=== PATIENT | male | born 1980 | race American Indian/Alaskan Native ===

== ENCOUNTER 2017-03-02 22:53 | Inpatient (IN) | payer OTHER ==
[2017-03-03] MEDS ORDERED: Aspirin 325 mg EC Tablets PO STA (00:47)
--- NOTE | 2017-03-03 00:47 | C.PDOC ---
History Of Present Illness Patient presents to the ED complaining of chest pain after lifting a heavy object. Patient notes a similar episode about a month ago that occurred while he was in [place]. Patient denies shortness of breath, palpitations, nausea , vomiting, numbness or weakness. Time Seen by Provider: 03/03/17 00:47 Chief Complaint (Nursing): Chest Pain History Per: Patient History/Exam Limitations: no limitations Onset/Duration Of Symptoms: Hrs (prior to arrival) Current Symptoms Are (Timing): Still Present Context: Other Severity: Mild Pain Scale Rating Of: 3 Quality: "Pain" Exacerbating Factors: None Alleviating Factors: None Recent travel outside of the [place]: No Additional History Per: Patient Past Medical History Reviewed: Historical Data, Nursing Documentation, Vital Signs Vital Signs: Last Vital Signs Temp 97.2 F L 03/02/17 22:58 Pulse 56 L 03/03/17 00:15 Resp 14 03/03/17 00:15 BP 147/91 H 03/03/17 00:15 Pulse Ox 98 03/03/17 02:29 - Medical History PMH: Asthma Family History: States: Unknown Family Hx - Social History Hx Alcohol Use: Yes Hx Substance Use: No - Immunization History Hx Tetanus Toxoid Vaccination: Yes Hx Influenza Vaccination: No Hx Pneumococcal Vaccination: No Review Of Systems ENT: Negative for: Throat Pain Cardiovascular: Positive for: Chest Pain. Negative for: Palpitations Respiratory: Negative for: Shortness of Breath Gastrointestinal: Negative for: Nausea, Vomiting Musculoskeletal: Negative for: Back Pain Skin: Negative for: Rash, Lesions, Jaundice Neurological: Negative for: Weakness, Numbness Psych: Negative for: Anxiety Physical Exam - Physical Exam Appears: Non-toxic, No Acute Distress Skin: Warm, Dry Head: Atraumatic, Normacephalic Eye(s): bilateral: Normal Inspection, PERRL, EOMI Oral Mucosa: Moist Neck: Supple Chest: Symmetrical Cardiovascular: Rhythm Regular Respiratory: No Rales, No Rhonchi, No Wheezing Gastrointestinal/Abdominal: Soft, No Tenderness Back: No CVA Tenderness Extremity: Bilateral: Atraumatic, Normal Color And Temperature Neurological/Psych: Oriented x3, Normal Speech, Normal Cognition, Normal Motor, Normal Sensation Gait: Steady ED Course And Treatment - Laboratory Results Result Diagrams: 03/03/17 01:00 03/03/17 01:00 ECG: Interpreted By Me, Viewed By Me ECG Rhythm: Sinus Rhythm (86), ST/T Changes (inf ischemic changes) O2 Sat by Pulse Oximetry: 98 (RA) Pulse Ox Interpretation: Normal - Radiology CXR: Interpreted by Me, Viewed By Me CXR Interpretation: No: Infiltrates, Fracture, Pnemothorax Progress Note: Plan: EKG, Labs, Chest x-ray, Ecotrin Disposition Discussed With Dr.: Zachary Chino Comment: accepted the pt on his service and took over the care at 3 AM Counseled Patient/Family Regarding: Studies Performed, Diagnosis - Disposition Disposition Time: 00:47 Condition: FAIR - Clinical Impression Clinical Impression: Chest pain - Scribe Statement The provider has reviewed the documentation as recorded by the Scribe Gilma Selby Provider Attestation: All medical record entries made by the Scribe were at my direction and personally dictated by me. I have reviewed the chart and agree that the record accurately reflects my personal performance of the history, physical exam, medical decision making, and the department course for this patient. I have also personally directed, reviewed, and agree with the discharge instructions and disposition. Decision To Admit - Pt Status Changed To: Hospital Disposition Of: Observation - . Bed Request Type: Telemetry Admitting Physician: Zachayr Chino Patient Diagnosis: Chest pain
[2017-03-03] MEDS ORDERED: Aspirin 325 mg EC Tablets PO ONE (01:01)
[2017-03-03 01:09] LABS: BASO # 0.1 K/uL (0.0-0.2); BASO % 0.7 % (0.0-2.0); EOS # 0.2 K/uL (0.0-0.7); EOS % 2.7 % (0.0-4.0); HEMATOCRIT 39.5 % (35.0-51.0); LYMPH % 41.7 % (20.0-40.0); MEAN CELL VOLUME 84.9 fL (80.0-94.0); MEAN CORPUSCULAR HEMOGLOBIN 27.9 pg (27.0-31.0); MEAN CORPUSCULAR HGB CONC 32.8 g/dL (33.0-37.0); MEAN PLATELET VOLUME 9.8 fL (7.2-11.7); MONO # 0.7 K/uL (0.0-0.8); MONO % 9.9 % (0.0-10.0); NRBC % 0.1 % (0.0-2.0); RED CELL DISTRIBUTION WIDTH 12.6 % (11.5-14.5); WHITE BLOOD COUNT 7.1 K/uL (4.8-10.8)
[2017-03-03 01:17] LABS: CHLORIDE 103 mmol/L (98-107); POTASSIUM 3.8 mmol/L (3.6-5.2); SODIUM 142 mmol/L (132-148)
[2017-03-03 01:19] LABS: GFR AFRICAN-AMERICAN > 60
[2017-03-03 01:20] LABS: ALB/GLOB RATIO 1.4 (1.0-2.1); ALKALINE PHOSPHATASE 56 U/L (38-126); ALT/SGPT 41 U/L (21-72); AST/SGOT 35 U/L (17-59); BILIRUBIN,TOTAL 0.8 mg/dL (0.2-1.3); BLOOD UREA NITROGEN 20 mg/dL (9-20); CARBON DIOXIDE 26 mmol/L (22-30); GLUCOSE,RANDOM 95 mg/dL (75-110); TOTAL PROTEIN 6.9 g/dL (6.3-8.3)
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
[2017-03-03 07:42] LABS: THYROID STIMULATING HORMONE 1.27 mIU/L (0.46-4.68)
--- NOTE | 2017-03-03 08:45 | RAD ---
PROCEDURE: CHEST RADIOGRAPH, 1 VIEW HISTORY: chest pain COMPARISON: None available. FINDINGS: LUNGS: Clear. PLEURA: No pneumothorax or pleural fluid seen. CARDIOVASCULAR: Normal. OSSEOUS STRUCTURES: No significant abnormalities. VISUALIZED UPPER ABDOMEN: Normal. OTHER FINDINGS: None. IMPRESSION: No active disease.
[2017-03-03] MEDS: Pantoprazole 40 mg EC Tab PO SCH (10:07)
--- NOTE | 2017-03-03 16:13 | CP.PCM.PN ---
<Paula Barton - Last Filed: 03/03/17 16:10> Subjective - Date & Time of Evaluation Date of Evaluation: 03/03/17 Time of Evaluation: 16:10 - Subjective Subjective: Patient seen and examined at bedside. Patient continues to have non-radiating sharp right and left sided chest pain, non-reproducible on palpation. Patient also complaining of dizziness and mild weakness. He states he is only short of breath when his asthma is provoked. Patient is tolerating diet well and having normal bowel movements. He denies abdominal pain, nausea, vomiting and diaphoresis. Objective - Vital Signs/Intake and Output Vital Signs (last 24 hours): Temp Pulse Resp BP Pulse Ox 97.5 F L 60 20 136/94 H 97 03/03/17 14:42 03/03/17 14:42 03/03/17 14:42 03/03/17 14:42 03/03/17 14:42 - Medications Medications: Current Medications Aspirin (Ecotrin) 81 mg PO DAILY [facility] Carvedilol (Coreg) 3.125 mg PO BID [facility] Lisinopril (Zestril) 2.5 mg PO DAILY [facility] Pantoprazole Sodium (Protonix Ec Tab) 40 mg PO DAILY [facility] Last Admin: 03/03/17 10:07 Dose: 40 mg - Labs Labs: PT 10.9 SECONDS (9.7-12.2) 03/03/17 01:00 INR 1.0 03/03/17 01:00 APTT 33 SECONDS (21-34) 03/03/17 01:00 - Constitutional Appears: Non-toxic, No Acute Distress - Head Exam Head Exam: ATRAUMATIC, NORMAL INSPECTION, NORMOCEPHALIC - Eye Exam Eye Exam: EOMI, Normal appearance, PERRL - ENT Exam ENT Exam: Mucous Membranes Moist, Normal Exam - Respiratory Exam Respiratory Exam: Clear to Ausculation Bilateral, NORMAL BREATHING PATTERN. absent: Rales, Rhonchi, Wheezes - Cardiovascular Exam Cardiovascular Exam: Bradycardia, +S1, +S2. absent: Tachycardia - GI/Abdominal Exam GI & Abdominal Exam: Soft, Normal Bowel Sounds. absent: Firm, Tenderness - Extremities Exam Extremities Exam: Normal Inspection. absent: Pedal Edema, Tenderness - Back Exam Back Exam: NORMAL INSPECTION - Neurological Exam Neurological Exam: Alert, Awake, Oriented x3 - Psychiatric Exam Psychiatric exam: Normal Affect, Normal Mood - Skin Skin Exam: Intact, Normal Color, Warm Assessment and Plan - Assessment and Plan (Free Text) Assessment: (1) Chest pain Assessment and Plan: AVIS Panel negative EKG sinus bridgette, possible T wave inversions in II, III, AVF Started on ASA 81 mg po daily, Lisinopril 2.5 mg po daily, Coreg 3.125 mg po BID Stat EKG ordered Cardiology, Dr. Solomon consulted. Help appreciated. Lipid Panel - normal, TSH - within normal limits will attempt to obtain records from hospital in [place] for prior workup Status: Acute (2) Light-headedness Assessment and Plan: EKG sinus bridgette, possible T wave inversions in II, III, AVF orthostatics: layin/117, sitting 161/ 115, standing 185/118 Status: Acute (3) Prophylactic measure Assessment and Plan: SCDs protonix 40mg daily Heart Healthy Diet Status: Acute <Kalia Weiss - Last Filed: 03/03/17 18:02> Objective - Vital Signs/Intake and Output Vital Signs (last 24 hours): Temp Pulse Resp BP Pulse Ox 97.7 F 58 L 12 138/103 H 98 03/03/17 15:45 03/03/17 16:33 03/03/17 15:45 03/03/17 15:45 03/03/17 15:45 Intake and Output: 03/03/17 03/03/17 06:59 18:59 Intake Total 0 Balance 0 - Medications Medications: Current Medications Aspirin (Ecotrin) 81 mg PO DAILY [facility] Carvedilol (Coreg) 3.125 mg PO BID [facility] Last Admin: 03/03/17 17:28 Dose: 3.125 mg Lisinopril (Zestril) 2.5 mg PO DAILY [facility] Pantoprazole Sodium (Protonix Ec Tab) 40 mg PO DAILY [facility] Last Admin: 03/03/17 10:07 Dose: 40 mg - Labs Labs: PT 10.9 SECONDS (9.7-12.2) 03/03/17 01:00 INR 1.0 03/03/17 01:00 APTT 33 SECONDS (21-34) 03/03/17 01:00 Attending/Attestation - Attestation I have personally seen and examined this patient.: Yes I have fully participated in the care of the patient.: Yes I have reviewed all pertinent clinical information, including history, physical exam and plan: Yes Notes (Text): 03/03/17 18:00 Medical attending: Patient was seen and examined by me, agrees the above note by medical records supervisor. Patient the patient was still in the ER pending bed placement upstairs. He explained to us that he is very concerned about his chest pain and that he has a family history of his father from heart complications in his mid 30s as well. The patient denies smoking he denies drug use. He denies trauma. The pain is not reproducible on exam. On the EKG he appeared to have some T-wave inversions as well as T-wave flattening a lot of the leads his cardiac enzymes were negative at this time he explains to us that he was previously at another hospital and [facility] where he also had a workup done including he says a stress test there currently don't have the results of that in order to try to see medical records from this hospital but it's not clear where it sat the patient says that it's at a hospital in [place], [place]. In the meantime, repeat EKG, get a echo as well, Thank you very much, Kalia Weiss
[2017-03-03] MEDS ORDERED: Albuterol HFA 90 mcg/actuation (8 g) IH PRN (18:31)
--- NOTE | 2017-03-03 18:53 | CARD ---
APPROVED REPORT EKG Measurement Heart [id number] <Conclusion> Sinus bradycardia ST & T wave abnormality, consider inferior ischemia Abnormal ECG
[2017-03-03 19:53] LABS: RBC URINE < 1 /hpf (0-3); URINE BILIRUBIN NEGATIVE (NEGATIVE); URINE BLOOD NEGATIVE (NEGATIVE); URINE COLOR Yellow (YELLOW); URINE GLUCOSE (UA) NORMAL (Normal); URINE KETONE NEGATIVE (NEGATIVE); URINE LEUKOCYTE ESTERASE NEG Leu/uL (Negative); URINE PROTEIN NEGATIVE (NEGATIVE); URINE UROBILINOGEN NORMAL mg/dL (0.2-1.0); WBC URINE 1 /hpf (0-5)
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
[2017-03-04 08:25] LABS: BASO % 0.8 % (0.0-2.0); EOS # 0.2 K/uL (0.0-0.7); EOS % 3.8 % (0.0-4.0); HEMATOCRIT 39.9 % (35.0-51.0); LYMPH # 2.5 K/uL (1.0-4.3); LYMPH % 51.8 % (20.0-40.0); MEAN CELL VOLUME 85.8 fL (80.0-94.0); MEAN CORPUSCULAR HEMOGLOBIN 28.2 pg (27.0-31.0); MEAN CORPUSCULAR HGB CONC 32.9 g/dL (33.0-37.0); MEAN PLATELET VOLUME 9.7 fL (7.2-11.7); MONO # 0.5 K/uL (0.0-0.8); MONO % 9.9 % (0.0-10.0); NRBC % 0.1 % (0.0-2.0); RED CELL DISTRIBUTION WIDTH 12.5 % (11.5-14.5); WHITE BLOOD COUNT 4.8 K/uL (4.8-10.8)
[2017-03-04 08:33] LABS: CHLORIDE 103 mmol/L (98-107); POTASSIUM 3.6 mmol/L (3.6-5.2); SODIUM 138 mmol/L (132-148)
[2017-03-04 08:35] LABS: ALB/GLOB RATIO 1.4 (1.0-2.1); BILIRUBIN,TOTAL 1.5 mg/dL (0.2-1.3); CARBON DIOXIDE 24 mmol/L (22-30); GFR AFRICAN-AMERICAN > 60; TOTAL PROTEIN 6.3 g/dL (6.3-8.3)
[2017-03-04 08:36] LABS: ALKALINE PHOSPHATASE 52 U/L (38-126); ALT/SGPT 34 U/L (21-72); AST/SGOT 27 U/L (17-59); BLOOD UREA NITROGEN 18 mg/dL (9-20); CALCIUM 8.6 mg/dl (8.6-10.4); GLUCOSE,RANDOM 88 mg/dL (75-110)
[2017-03-04] MEDS: Pantoprazole 40 mg EC Tab PO SCH (10:00)
[2017-03-04] MEDS: MethylPREDNISolone 40 mg Vial IVP SCH ×3 (10:00→17:25)
--- NOTE | 2017-03-04 10:55 | CARD ---
APPROVED REPORT EXAM: Two-dimensional and M-mode echocardiogram with Doppler and color Doppler. Other Information Quality : GoodRhythm : NSR INDICATION Chest Pain M-Mode DIMENSIONS RVDd1.22 (2.1-3.2cm)Left Atrium (MM)3.84 (2.5-4.0cm) IVSd1.33 (0.7-1.1cm)Aortic Root3.36 (2.2-3.7cm) LVDd4.61 (4.0-5.6cm)Aortic Cusp Exc.2.43 (1.5-2.0cm) PWd1.95 (0.7-1.1cm)FS (%) 46 % LVDs2.51 (2.0-3.8cm)LVEF (%)77 (>50%) Aortic Valve AoV Peak Xkldyyjk637.9cm/Shanice Peak GR.4mmHg Mitral Valve MV E Nxfdcjfd104.6cm/sMV A Bgpqqgxi63.3cm/sE/A ratio2.2 TDI E/Lateral E'0.0E/Medial E'0.0 Tricuspid Valve TR Peak Girbnabk410xc/sTR Peak Gr.10fuLgIXHD45stEr LEFT VENTRICLE The left ventricle is normal size. There is mild concentric left ventricular hypertrophy. The left ventricular function is normal. The left ventricular ejection fraction is within the normal range. About 65% No regional wall motion abnormalities noted. Transmitral Doppler flow pattern is Grade I-abnormal relaxation pattern. No left ventricle thrombus noted on this study. There is no ventricular septal defect visualized. There is no left ventricular aneurysm. There is no mass noted in the left ventricle. RIGHT VENTRICLE The right ventricle is normal size. There is normal right ventricular wall thickness. The right ventricular systolic function is normal. ATRIA The left atrium size is normal. The right atrium size is normal. The interatrial septum is intact with no evidence for an atrial septal defect. AORTIC VALVE The aortic valve is normal in structure and function. No aortic regurgitation is present. There is no aortic valvular stenosis. There is no aortic valvular vegetation. MITRAL VALVE The mitral valve is normal in structure and function. There is no evidence of mitral valve prolapse. There is no mitral valve stenosis. There is trace mitral valve regurgitation noted. TRICUSPID VALVE The tricuspid valve is normal in structure and function. There is no tricuspid valve regurgitation noted. There is no tricuspid valve prolapse or vegetation. There is no tricuspid valve stenosis. PULMONIC VALVE The pulmonary valve is normal in structure and function. There is no pulmonic valvular regurgitation. There is no pulmonic valvular stenosis. GREAT VESSELS The aortic root is normal in size. The ascending aorta is normal in size. The pulmonary artery is normal. The IVC is normal in size and collapses >50% with inspiration. PERICARDIAL EFFUSION The pericardium appears normal. There is no pleural effusion. <Conclusion> Normal LV EF, Type I diastolic dysfunction Mild LVH Trace MR.
--- NOTE | 2017-03-04 11:45 | CARD ---
APPROVED REPORT EKG Measurement Heart [id number] [place] 144P53 [id number] <Conclusion> Sinus bradycardia Nonspecific T wave abnormality Abnormal ECG
--- NOTE | 2017-03-04 11:46 | CARD ---
APPROVED REPORT EKG Measurement Heart [id number] SD [id number] <Conclusion> Sinus bradycardia with marked sinus arrhythmia Nonspecific T wave abnormality Abnormal ECG
[2017-03-04 20:06] VITALS: RESP 20
--- NOTE | 2017-03-04 20:22 | CP.PCM.PN ---
<KanePaula tracey - Last Filed: 03/04/17 20:19> Subjective - Date & Time of Evaluation Date of Evaluation: 03/04/17 Time of Evaluation: 20:19 - Subjective Subjective: Patient seen and examined at bedside. Patient states he continues to have dizziness. He states he also had episode of sharp chest pain throughout the night and this morning intermittently. Patient denies fever, chills, abdominal pain, nausea, vomiting, constipation, diarrhea, and dysuria. Objective - Vital Signs/Intake and Output Vital Signs (last 24 hours): Temp Pulse Resp BP Pulse Ox 97.6 F 86 20 130/77 97 03/04/17 19:55 03/04/17 19:55 03/04/17 19:55 03/04/17 19:55 03/04/17 19:55 Intake and Output: 03/04/17 03/05/17 18:59 06:59 Intake Total 120 Balance 120 - Medications Medications: Current Medications Albuterol (Ventolin Hfa 90 Mcg/Actuation (8 G)) 2 puff IH Q6H PRN PRN Reason: Shortness of Breath Last Admin: 03/04/17 07:28 Dose: 2 inhaler Aspirin (Ecotrin) 81 mg PO DAILY [facility] Last Admin: 03/04/17 10:01 Dose: 81 mg Carvedilol (Coreg) 3.125 mg PO BID [facility] Last Admin: 03/04/17 17:26 Dose: 3.125 mg Lisinopril (Zestril) 2.5 mg PO DAILY [facility] Last Admin: 03/04/17 10:00 Dose: 2.5 mg Meclizine HCl (Antivert) 12.5 mg PO BID PRN PRN Reason: Dizziness Last Admin: 03/04/17 10:16 Dose: 12.5 mg Methylprednisolone (Solu-Medrol) 20 mg IVP TID [facility] Last Admin: 03/04/17 17:25 Dose: 20 mg Pantoprazole Sodium (Protonix Ec Tab) 40 mg PO DAILY [facility] Last Admin: 03/04/17 10:00 Dose: 40 mg - Labs Labs: PT 10.9 SECONDS (9.7-12.2) 03/03/17 01:00 INR 1.0 03/03/17 01:00 APTT 33 SECONDS (21-34) 03/03/17 01:00 - Constitutional Appears: Non-toxic, No Acute Distress - Head Exam Head Exam: ATRAUMATIC, NORMAL INSPECTION, NORMOCEPHALIC - Eye Exam Eye Exam: EOMI, Normal appearance, PERRL - ENT Exam ENT Exam: Mucous Membranes Moist, Normal Exam - Neck Exam Neck Exam: Full ROM, Normal Inspection - Respiratory Exam Respiratory Exam: Clear to Ausculation Bilateral, NORMAL BREATHING PATTERN. absent: Rales, Rhonchi, Wheezes - Cardiovascular Exam Cardiovascular Exam: +S1, +S2. absent: Tachycardia - GI/Abdominal Exam GI & Abdominal Exam: Soft, Normal Bowel Sounds - Extremities Exam Extremities Exam: Normal Inspection. absent: Pedal Edema, Tenderness - Back Exam Back Exam: NORMAL INSPECTION - Neurological Exam Neurological Exam: Alert, Awake, Oriented x3 - Psychiatric Exam Psychiatric exam: Normal Affect, Normal Mood - Skin Skin Exam: Intact, Normal Color, Warm Assessment and Plan - Assessment and Plan (Free Text) Assessment: (1) Chest pain Assessment and Plan: AVIS Panel negative EKG sinus bridgette, possible T wave inversions in II, III, AVF Echo: Normal LV EF, Type I diastolic dysfunction. Mild LVH, Trace MR. Started on ASA 81 mg po daily, Lisinopril 2.5 mg po daily, Coreg 3.125 mg po BID Patient positive for orthostatic hypotension. Started on Normal Saline IV @ 70cc Cardiology, Dr. Solomon consulted. Help appreciated. Lipid Panel - normal, TSH - within normal limits awaiting records from hospital in [place] Status: Acute (2) Light-headedness Assessment and Plan: EKG sinus bridgette, possible T wave inversions in II, III, AVF orthostatics: lying 141/51, sitting 119/77 layin/117, sitting 161/ 115, standing 185/118 Status: Acute (3) Asthma Assessment and Plan: Improved Continue Solumedrol 20 mg IVP TID (4) Prophylactic measure Assessment and Plan: SCDs protonix 40mg daily Heart Healthy Diet Status: Acute <Kalia Weiss - Last Filed: 03/05/17 14:55> Objective - Vital Signs/Intake and Output Vital Signs (last 24 hours): Temp Pulse Resp BP Pulse Ox 97.4 F L 52 L 20 135/65 97 03/05/17 07:00 03/05/17 07:00 03/05/17 07:00 03/05/17 07:00 03/05/17 07:00 Intake and Output: 03/05/17 03/05/17 06:59 18:59 Intake Total 1200 Output Total 200 Balance 1000 - Medications Medications: Current Medications Albuterol (Ventolin Hfa 90 Mcg/Actuation (8 G)) 2 puff IH Q6H PRN PRN Reason: Shortness of Breath Last Admin: 03/04/17 07:28 Dose: 2 inhaler Aspirin (Ecotrin) 81 mg PO DAILY [facility] Last Admin: 03/05/17 11:09 Dose: 81 mg Carvedilol (Coreg) 3.125 mg PO BID [facility] Last Admin: 03/05/17 11:14 Dose: 3.125 mg Sodium Chloride (Sodium Chloride 0.9%) 1,000 mls @ 70 mls/hr IV .[id number] [facility] Last Admin: 03/05/17 11:19 Dose: 70 mls/hr Lisinopril (Zestril) 2.5 mg PO DAILY [facility] Last Admin: 03/05/17 11:18 Dose: Not Given Meclizine HCl (Antivert) 12.5 mg PO BID PRN PRN Reason: Dizziness Last Admin: 03/04/17 10:16 Dose: 12.5 mg Methylprednisolone (Solu-Medrol) 20 mg IVP TID [facility] Last Admin: 03/05/17 14:46 Dose: 20 mg Pantoprazole Sodium (Protonix Ec Tab) 40 mg PO DAILY [facility] Last Admin: 03/05/17 11:08 Dose: 40 mg - Labs Labs: 03/05/17 05:57 03/05/17 05:57 PT 10.9 SECONDS (9.7-12.2) 03/03/17 01:00 INR 1.0 03/03/17 01:00 APTT 33 SECONDS (21-34) 03/03/17 01:00 Attending/Attestation - Attestation I have personally seen and examined this patient.: Yes I have fully participated in the care of the patient.: Yes I have reviewed all pertinent clinical information, including history, physical exam and plan: Yes
[2017-03-04] MEDS: Sodium Chloride 0.9% 1,000 ML IV SCH (20:55)
[2017-03-05 06:04] LABS: BASO % 0.7 % (0.0-2.0); EOS # 0.2 K/uL (0.0-0.7); EOS % 3.3 % (0.0-4.0); HEMATOCRIT 40.6 % (35.0-51.0); LYMPH # 2.5 K/uL (1.0-4.3); LYMPH % 48.5 % (20.0-40.0); MEAN CELL VOLUME 84.9 fL (80.0-94.0); MEAN CORPUSCULAR HEMOGLOBIN 28.1 pg (27.0-31.0); MEAN CORPUSCULAR HGB CONC 33.1 g/dL (33.0-37.0); MEAN PLATELET VOLUME 9.6 fL (7.2-11.7); MONO # 0.5 K/uL (0.0-0.8); MONO % 8.8 % (0.0-10.0); NRBC % 0.1 % (0.0-2.0); RED CELL DISTRIBUTION WIDTH 12.4 % (11.5-14.5); WHITE BLOOD COUNT 5.2 K/uL (4.8-10.8)
[2017-03-05 06:17] LABS: CHLORIDE 103 mmol/L (98-107); SODIUM 139 mmol/L (132-148)
[2017-03-05 06:18] LABS: POTASSIUM 3.6 mmol/L (3.6-5.2)
[2017-03-05 06:20] LABS: ALB/GLOB RATIO 1.4 (1.0-2.1); ALKALINE PHOSPHATASE 50 U/L (38-126); ALT/SGPT 37 U/L (21-72); AST/SGOT 25 U/L (17-59); BILIRUBIN,TOTAL 0.5 mg/dL (0.2-1.3); BLOOD UREA NITROGEN 16 mg/dL (9-20); CARBON DIOXIDE 26 mmol/L (22-30); GFR AFRICAN-AMERICAN > 60; GLUCOSE,RANDOM 90 mg/dL (75-110); TOTAL PROTEIN 6.4 g/dL (6.3-8.3)
[2017-03-05 06:21] LABS: CALCIUM 8.3 mg/dl (8.6-10.4); MAGNESIUM 1.9 mg/dL (1.6-2.3)
[2017-03-05 09:05] VITALS: O2SAT 97
[2017-03-05] MEDS: Pantoprazole 40 mg EC Tab PO SCH (11:08)
[2017-03-05] MEDS: MethylPREDNISolone 40 mg Vial IVP SCH ×2 (11:08→14:46)
[2017-03-05] MEDS: Sodium Chloride 0.9% 1,000 ML IV SCH (11:19)
[2017-03-05 16:15] VITALS: BP 143/79; PULSE 64; TEMP 97.6
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
== END 2017-03-05 16:30 | disposition home or self-care (01) | DRG 143 ==
LOC: C.ER 22:53 → C.9E 03-03 02:59 → C.9I 03-03 15:16 → OBSVTOIN 03-04 15:23 → C.5T 03-04 22:35
PROVIDERS: ADMIT Hospitalist; ATTEND Hospitalist
DX: R07.9 Chest pain, unspecified (principal); I95.1 Orthostatic hypotension; J45.909 Unspecified asthma, uncomplicated; R42 Dizziness and giddiness; R51 Headache; Z82.49 Family history of ischemic heart disease and other diseases of the circulatory system; Z82.5 Family history of asthma and other chronic lower respiratory diseases; Z87.891 Personal history of nicotine dependence

== ENCOUNTER 2017-03-12 23:43 | Emergency (ER) | payer SELFPAY ==
--- NOTE | 2017-03-13 00:02 | C.PDOC ---
Chief Complaint (Nursing): Chest Pain Past Medical History Vital Signs: Last Vital Signs Temp 98.9 F 03/12/17 23:47 Pulse 64 03/12/17 23:47 Resp 18 03/12/17 23:47 BP 160/100 H 03/12/17 23:47 Pulse Ox 97 03/12/17 23:47 - Medical History PMH: Asthma Family History: States: Unknown Family Hx - Social History Hx Alcohol Use: Yes Hx Substance Use: No - Immunization History Hx Tetanus Toxoid Vaccination: Yes Hx Influenza Vaccination: No Hx Pneumococcal Vaccination: No ED Course And Treatment O2 Sat by Pulse Oximetry: 97 Disposition - Disposition Referrals: Non [facility] Provider, [Primary Care Provider] -
--- NOTE | 2017-03-13 00:05 | C.PDOC ---
History Of Present Illness Patient is a 36 year old male who presents to the ER with a complaint of persistent left sided chest pain that began 2 hours ago. Denies any shortness of breath, fever, or nausea. Chief Complaint (Nursing): Chest Pain History Per: Patient History/Exam Limitations: no limitations Onset/Duration Of Symptoms: Hrs (2), Persistent Current Symptoms Are (Timing): Still Present Associated Symptoms: denies: Nausea, Dyspnea Past Medical History Reviewed: Historical Data, Nursing Documentation, Vital Signs Vital Signs: Last Vital Signs Temp 98.2 F 03/13/17 03:32 Pulse 58 L 03/13/17 03:32 Resp 18 03/13/17 03:32 BP 130/79 03/13/17 03:32 Pulse Ox 99 03/13/17 03:32 - Medical History PMH: Asthma Surgical History: No Surg Hx Family History: States: Unknown Family Hx - Social History Hx Alcohol Use: Yes Hx Substance Use: No - Immunization History Hx Tetanus Toxoid Vaccination: Yes Hx Influenza Vaccination: No Hx Pneumococcal Vaccination: No Review Of Systems Constitutional: Negative for: Fever Cardiovascular: Positive for: Chest Pain (Left sided) Respiratory: Negative for: Shortness of Breath Gastrointestinal: Negative for: Nausea Physical Exam - Physical Exam Appears: Well, Non-toxic, No Acute Distress Skin: Normal Color, Warm, Dry Head: Atraumatic, Normacephalic Oral Mucosa: Moist Chest: Symmetrical, No Tenderness Cardiovascular: Rhythm Regular, No Murmur Respiratory: Normal Breath Sounds, No Rales, No Rhonchi, No Wheezing, Other (Non -dyspneic) Neurological/Psych: Oriented x3, Normal Speech, Normal Cognition ED Course And Treatment - Laboratory Results Result Diagrams: 03/13/17 00:15 03/13/17 00:15 ECG: Interpreted By Me, Viewed By Me ECG Rhythm: Sinus Bradycardia, Nonspecific Changes ECG Interpretation: Abnormal Interpretation Of ECG: Sinus bradycardia, nonspc, st-t changes v3 to v6, abnormal tracings O2 Sat by Pulse Oximetry: 97 Pulse Ox Interpretation: Normal - Radiology CXR: Interpreted by Me, Viewed By Me CXR Interpretation: Yes: No Acute Disease, Other (negative chest film) - CT Scan/US CTA w/ IV contrast Other Rad Studies (CT/US): Read By Radiologist, Radiology Report Reviewed CT/US Interpretation: IMPRESSION: 1. No definite CT evidence of pulmonary embolism. 2. Incidental/non-acute findings are described above. Progress Note: Blood work, CXR, chest CT, and EKG ordered. Toradol administered. Disposition Counseled Patient/Family Regarding: Diagnosis - Disposition Referrals: Non [facility] Provider, [Primary Care Provider] - [facility] [Outside] Disposition: HOME/ ROUTINE Disposition Time: 03:23 Condition: STABLE Prescriptions: Naproxen [Naprosyn Tab] 375 mg PO TIDPC #20 tab Instructions: Chest Wall Pain (ED) - POA Present On Arrival: None - Clinical Impression Clinical Impression: Chest wall pain - Scribe Statement The provider has reviewed the documentation as recorded by the Scribe Nash Ramesh All medical record entries made by the Scribe were at my direction and personally dictated by me. I have reviewed the chart and agree that the record accurately reflects my personal performance of the history, physical exam, medical decision making, and the department course for this patient. I have also personally directed, reviewed, and agree with the discharge instructions and disposition.
[2017-03-13 00:17] LABS: BASO % 0.6 % (0.0-2.0); EOS # 0.2 K/uL (0.0-0.7); EOS % 3.1 % (0.0-4.0); HEMATOCRIT 39.2 % (35.0-51.0); LYMPH # 2.9 K/uL (1.0-4.3); LYMPH % 44.6 % (20.0-40.0); MEAN CELL VOLUME 85.4 fL (80.0-94.0); MEAN CORPUSCULAR HEMOGLOBIN 28.1 pg (27.0-31.0); MEAN CORPUSCULAR HGB CONC 32.8 g/dL (33.0-37.0); MEAN PLATELET VOLUME 9.8 fL (7.2-11.7); MONO # 0.7 K/uL (0.0-0.8); MONO % 10.8 % (0.0-10.0); RED CELL DISTRIBUTION WIDTH 12.4 % (11.5-14.5); WHITE BLOOD COUNT 6.5 K/uL (4.8-10.8)
[2017-03-13 00:27] LABS: CHLORIDE 100 mmol/L (98-107); SODIUM 140 mmol/L (132-148)
[2017-03-13 00:28] LABS: POTASSIUM 3.3 mmol/L (3.6-5.2)
[2017-03-13 00:30] LABS: ALB/GLOB RATIO 1.5 (1.0-2.1); ALKALINE PHOSPHATASE 59 U/L (38-126); ALT/SGPT 53 U/L (21-72); AST/SGOT 40 U/L (17-59); BILIRUBIN,TOTAL 0.7 mg/dL (0.2-1.3); BLOOD UREA NITROGEN 17 mg/dL (9-20); CARBON DIOXIDE 27 mmol/L (22-30); GFR AFRICAN-AMERICAN > 60; GLUCOSE,RANDOM 105 mg/dL (75-110); TOTAL PROTEIN 7.2 g/dL (6.3-8.3)
[2017-03-13 00:31] LABS: CALCIUM 8.5 mg/dl (8.6-10.4)
[2017-03-13] MEDS ORDERED: Iodixanol 320 MG/ML 100 ML BOTTLE IV ONE (01:14)
--- NOTE | 2017-03-13 02:50 | CT ---
EXAM: CT Angiography Chest With Intravenous Contrast CLINICAL HISTORY: 36 years old, male; Pain; Chest pain; Prior surgery; Surgery type: Shoulder surgery 2010; Additional info: Chest pain, elevated d-dime TECHNIQUE: Axial computed tomographic angiography images of the chest with intravenous contrast using pulmonary embolism protocol. This CT exam was performed using one or more of the following dose reduction techniques: automated exposure control, adjustment of the mA and/or kV according to patient size, and/or use of iterative reconstruction technique. MIP reconstructed images were created and reviewed. Coronal and sagittal reformatted images were created and reviewed. CONTRAST: 100 mL of [id number] administered intravenously. COMPARISON: No relevant prior studies available. FINDINGS: Limitations: Suboptimal timing of bolus. Pulmonary arteries: No definite pulmonary embolism. Aorta: No aneurysm. No dissection. Lungs: Minimal atelectasis. No consolidation. Pleural space: No significant effusion. No pneumothorax. Heart: No cardiomegaly. No significant pericardial effusion. Bones/joints: No acute fracture. No dislocation. Soft tissues: Unremarkable. Lymph nodes: No pathologically enlarged lymph nodes. IMPRESSION: 1. No definite CT evidence of pulmonary embolism. 2. Incidental/non-acute findings are described above.
[2017-03-13 03:33] VITALS: BP 130/79; PULSE 58; RESP 18; TEMP 98.2
--- NOTE | 2017-03-13 08:34 | RAD ---
HISTORY: chest pain COMPARISON: 03/03/2017 TECHNIQUE: Chest PA and lateral FINDINGS: LUNGS: No active pulmonary disease. PLEURA: No significant pleural effusion identified. No pneumothorax apparent. CARDIOVASCULAR: Normal. OSSEOUS STRUCTURES: No significant abnormalities. VISUALIZED UPPER ABDOMEN: Normal. OTHER FINDINGS: None. IMPRESSION: No active disease.
--- NOTE | 2017-03-13 12:00 | CARD ---
APPROVED REPORT EKG Measurement Heart [id number] [id number] <Conclusion> Sinus bradycardia with sinus arrhythmia Nonspecific T wave abnormality Abnormal ECG
[2017-03-14 10:49] VITALS: O2SAT 97
== END 2017-03-13 03:33 | disposition home or self-care (01) ==
LOC: SUPCPDRO 23:43 → C.ER 23:43
DX: R07.89 Other chest pain (principal)
CPT/HCPCS: 71020; 71275; 80053; 84484; 85025; 85378; 85610; 85730; 93005; 96374; 99285; J1885; Q9967

== ENCOUNTER 2019-01-03 03:08 | Emergency (ER) | payer SELFPAY ==
[2019-01-03 03:36] VITALS: BP 111/68; PULSE 82; RESP 20; TEMP 98.2; O2SAT 98
--- NOTE | 2019-01-03 04:26 | C.PDOC ---
History Of Present Illness Patient refuses to answer my questions, is very hostile, argumentative, verbally abusive without cause, walked out after EKG. Time Seen by Provider: 01/03/19 03:37 Chief Complaint (Nursing): Chest Pain Past Medical History Vital Signs: Last Vital Signs Temp 98.2 F 01/03/19 03:31 Pulse 82 01/03/19 03:31 Resp 20 01/03/19 03:31 BP 111/68 01/03/19 03:31 Pulse Ox 98 01/03/19 03:31 - Medical History PMH: Asthma Family History: States: Unknown Family Hx - Social History Hx Alcohol Use: No Hx Substance Use: No - Immunization History Hx Tetanus Toxoid Vaccination: Yes Hx Influenza Vaccination: No Hx Pneumococcal Vaccination: No ED Course And Treatment ECG: Interpreted By Me, Viewed By Me ECG Rhythm: Sinus Rhythm ECG Interpretation: Normal Rate From EC O2 Sat by Pulse Oximetry: 98 Disposition - Disposition Disposition: ELOPEMENT - ER ONLY Disposition Time: 04:25 Condition: UNKNOWN Forms: [facility] (Bulgarian) - Clinical Impression Clinical Impression: Alcohol abuse, Nonspecific chest pain - PA / [employer]STEWARDESS / Resident Statement MD/DO has reviewed & agrees with the documentation as recorded. - Scribe Statement The provider has reviewed the documentation as recorded by the Scribe
--- NOTE | 2019-01-03 16:14 | CARD ---
APPROVED REPORT Date of service: 01/03/2019 EKG Measurement Heart [id number] <Conclusion> Normal sinus rhythm Normal ECG
== END 2019-01-03 03:51 | disposition left against medical advice (07) ==
LOC: C.ER 03:08
DX: F10.10 Alcohol abuse, uncomplicated (principal); R07.9 Chest pain, unspecified

== ENCOUNTER 2019-01-05 03:26 | Emergency (ER) | payer SELFPAY ==
--- NOTE | 2019-01-05 03:53 | C.PDOC ---
History Of Present Illness 38 year old male presents to the ED for evaluation. Patient reports he has thoughts of hurting his . Patient refused to have blood work or urine analysis done. Crisis notified. Chief Complaint (Nursing): Psychiatric Evaluation History Per: Patient History/Exam Limitations: no limitations Onset/Duration Of Symptoms: Hrs Current Symptoms Are (Timing): Still Present Suicide/Self Injury Attempted (Context): None Associated Symptoms: Depression, Suicidal Thoughts Recent travel outside of the [place]: No Additional History Per: Patient Past Medical History Reviewed: Historical Data, Nursing Documentation, Vital Signs - Medical History PMH: Asthma Surgical History: No Surg Hx Family History: States: Unknown Family Hx - Social History Hx Alcohol Use: No Hx Substance Use: No - Immunization History Hx Tetanus Toxoid Vaccination: Yes Hx Influenza Vaccination: No Hx Pneumococcal Vaccination: No Review Of Systems Constitutional: Negative for: Fever, Chills Cardiovascular: Negative for: Chest Pain Respiratory: Negative for: Shortness of Breath Gastrointestinal: Negative for: Nausea, Vomiting, Abdominal Pain Psych: Positive for: Depression, Suicidal ideation Physical Exam - Physical Exam Appears: Non-toxic, No Acute Distress Skin: Normal Color, Warm, Dry Head: Atraumatic, Normacephalic Eye(s): bilateral: Normal Inspection Neck: Normal ROM, Supple Chest: Symmetrical Cardiovascular: Rhythm Regular Respiratory: Normal Breath Sounds, No Rales, No Rhonchi, No Wheezing Extremity: Normal ROM Neurological/Psych: Oriented x3, Normal Speech, Normal Cognition Gait: Steady ED Course And Treatment - Laboratory Results Result Diagrams: 01/05/19 04:28 01/05/19 04:28 Pulse Ox Interpretation: Normal Medical Decision Making Medical Decision Making: Patient refused blood work and UA, donation worker notified will evaluate patient at bedside Disposition Discussed With : Livan Ta Counseled Patient/Family Regarding: Diagnosis - Disposition Referrals: [facility] [Outside] Disposition Time: 05:39 Condition: STABLE Instructions: Intermittent Explosive Disorder Forms: [facility] (Sudanese) - POA Present On Arrival: None - Clinical Impression Clinical Impression: Impulse control disorder in adult - Scribe Statement The provider has reviewed the documentation as recorded by the Scribe Chriss Campbell All medical record entries made by the Scribe were at my direction and person ally dictated by me. I have reviewed the chart and agree that the record accurately reflects my personal performance of the history, physical exam, medical decision making, and the department course for this patient. I have also personally directed, reviewed, and agree with the discharge instructions and disposition.
[2019-01-05 04:00] VITALS: RESP 16; O2SAT 97
[2019-01-05 04:31] LABS: HEMOGLOBIN 15.4 g/dL (12.0-18.0); MEAN CELL VOLUME 84.8 fL (80.0-94.0)
[2019-01-05 04:45] LABS: BASO % 0.5 % (0.0-2.0); EOS # 0.2 K/uL (0.0-0.7); EOS % 3.2 % (0.0-4.0); LYMPH # 3.4 K/uL (1.0-4.3); LYMPH % 48.8 % (20.0-40.0); MEAN CORPUSCULAR HEMOGLOBIN 28.9 pg (27.0-31.0); MEAN PLATELET VOLUME 9.3 fL (7.2-11.7); MONO # 0.4 K/uL (0.0-0.8); MONO % 5.5 % (0.0-10.0); NEUT # 2.9 K/uL (1.8-7.0); NRBC % 0.2 % (0.0-2.0); RBC 5.34 Mil/uL (4.40-5.90); RED CELL DISTRIBUTION WIDTH 12.1 % (11.5-14.5); WHITE BLOOD COUNT 6.9 K/uL (4.8-10.8)
[2019-01-05 04:52] LABS: ALB/GLOB RATIO 1.7 (1.0-2.1); ALBUMIN 4.6 g/dL (3.5-5.0); ALT/SGPT 52 U/L (21-72); AST/SGOT 43 U/L (17-59); BLOOD UREA NITROGEN 15 mg/dL (9-20); CALCIUM 9.3 mg/dl (8.6-10.4); GFR NON-AFRICAN AMERICAN > 60
[2019-01-05 05:49] VITALS: BP 140/84; PULSE 98; TEMP 98.6
== END 2019-01-05 05:51 | disposition home or self-care (01) ==
LOC: C.ER 03:26
DX: F63.9 Impulse disorder, unspecified (principal)
CPT/HCPCS: 80053; 83735; 84100; 85025; 99283; G0480